=== PATIENT | female | born 1945 | race Caucasian/White ===

== ENCOUNTER → 2024-11-20 | Outpatient (CLI) | payer MEDICARE, SELFPAY ==
[2024-11-20 08:39] LABS: Basophils # (Auto) 0.1 Thou/mm3 (0.0-0.2); Basophils % (Auto) 2 % (0-2.5); Eosinophils # (Auto) 0.1 Thou/mm3 (0.0-0.5); Eosinophils % (Auto) 3 % (0-10); Hematocrit 40.9 % (36.0-46.0); Hemoglobin 13.7 g/dL (12.0-16.0); Immature Granulocytes % (Auto) 0 % (0-0); Immature Granulocytes Auto 0.01 Thou/mm3 (0.00-0.00); Lymphocytes # (Auto) 1.2 Thou/mm3 (1.0-4.8); Lymphocytes % (Auto) 32 % (10-50); Mean Corpuscular HGB Conc 33.5 g/dl (31.0-37.0); Mean Corpuscular Hemoglobin 29.5 pg (25.0-35.0); Mean Corpuscular Volume 88 fL (80-100); Monocytes # (Auto) 0.4 Thou/mm3 (0.0-0.8); Monocytes % (Auto) 12 % (0-12); Neutrophils # (Auto) 1.9 Thou/mm3 (1.8-7.7); Neutrophils % (Auto) 51 % (37-80); Nucleated Red Blood Cell % 0 /100 WBC (0); Platelet Count 338 Thou/mm3 (140-440); RDW Standard Deviation 40.4 fL (36.4-46.3); Red Blood Count 4.65 Miln/mm3 (4.00-5.20); White Blood Count 3.6 Thou/mm3 (3.6-11.0)
[2024-11-20 08:45] LABS: Glucose Estimated Average 108 mg/dL (80-131); Hemoglobin A1C 5.4 % Hgb (4.8-6.0)
[2024-11-20 08:49] LABS: T4 (Thyroxine) 10.4 mcg/dL (4.5-10.9)
[2024-11-20 09:01] LABS: Alanine Aminotransferase 11 U/L (10-49); Albumin, Serum 3.8 gm/dL (3.4-4.8); Albumin/Globulin Ratio 1.7 (1.2-2.2); Alkaline Phosphatase 115 U/L (46-116); Anion Gap 8 (7-16); Aspartate Amino Transferase 15 U/L (0-34); BUN/Creatinine Ratio 20 Ratio (12-20); Blood Urea Nitrogen 18 mg/dL (9-23); Calcium 10.1 mg/dL (8.3-10.6); Calcium (Corrected) 10.3 mg/dL (8.5-10.1); Carbon Dioxide 28.4 mMol/L (20.0-31.0); Cardiac Risk Estimate 2.5 RATIO (3.7-5.6); Chloride 98 mMol/L (98-107); Cholesterol 170 mg/dL (132-200); Creatinine (Component) 0.9 mg/dL (0.6-1.3); Globulin 2.3 gm/dL (2.3-3.5); Glucose 98 mg/dL (74-106); HDL Cholesterol 69 mg/dL (40-60); LDL Cholesterol,Calculated 83 mg/dL (0-130); Osmolality,Calculated 270 (275-295); Potassium 4.4 mMol/L (3.4-5.1); Sodium 134 mMol/L (136-145); Thyroid Stimulating Hormone 0.27 uIU/mL (0.55-4.78); Total Protein 6.1 gm/dL (5.7-8.2); Triglycerides 90 mg/dL (30-150); eGFR > 60 See Note
== END | disposition home or self-care (01) ==
PROVIDERS: PCP Family Medicine; Referring Provider Family Medicine; Visit Provider Family Medicine
DX: E03.9 Hypothyroidism, unspecified (principal); G47.30 Sleep apnea, unspecified; I10 Essential (primary) hypertension; J45.30 Mild persistent asthma, uncomplicated
CPT/HCPCS: 36415; 80053; 80061; 83036; 84436; 84443; 85025

== ENCOUNTER → 2025-07-25 | Outpatient (CLI) | payer MEDICARE, BC, SELFPAY ==
[2025-07-25 08:19] LABS: Basophils # (Auto) 0.1 Thou/mm3 (0.0-0.2); Basophils % (Auto) 1 % (0-2.5); Eosinophils # (Auto) 0.1 Thou/mm3 (0.0-0.5); Eosinophils % (Auto) 3 % (0-10); Hematocrit 41.2 % (36.0-46.0); Hemoglobin 13.5 g/dL (12.0-16.0); Immature Granulocytes Auto 0.01 Thou/mm3 (0.00-0.00); Lymphocytes # (Auto) 1.2 Thou/mm3 (1.0-4.8); Lymphocytes % (Auto) 32 % (10-50); Mean Corpuscular HGB Conc 32.8 g/dl (31.0-37.0); Mean Corpuscular Hemoglobin 29.7 pg (25.0-35.0); Mean Corpuscular Volume 91 fL (80-100); Monocytes # (Auto) 0.5 Thou/mm3 (0.0-0.8); Monocytes % (Auto) 13 % (0-12); Neutrophils # (Auto) 1.9 Thou/mm3 (1.8-7.7); Neutrophils % (Auto) 50 % (37-80); Nucleated Red Blood Cell # 0.00 Thou/mm3 (0.00-0.00); Nucleated Red Blood Cell % 0 /100 WBC (0); Platelet Count 321 Thou/mm3 (140-440); RDW Standard Deviation 48.9 fL (36.4-46.3); Red Blood Count 4.54 Miln/mm3 (4.00-5.20); White Blood Count 3.7 Thou/mm3 (3.6-11.0)
[2025-07-25 08:28] LABS: Glucose Estimated Average 120 mg/dL (80-131); Hemoglobin A1C 5.8 % Hgb (4.8-6.0)
[2025-07-25 08:44] LABS: Alanine Aminotransferase 14 U/L (10-49); Albumin, Serum 4.0 gm/dL (3.4-4.8); Albumin/Globulin Ratio 1.8 (1.2-2.2); Alkaline Phosphatase 98 U/L (46-116); Anion Gap 8 (7-16); Aspartate Amino Transferase 23 U/L (0-34); BUN/Creatinine Ratio 28 Ratio (12-20); Bilirubin,Total 0.9 mg/dL (0.3-1.2); Blood Urea Nitrogen 25 mg/dL (9-23); Calcium 10.0 mg/dL (8.3-10.6); Calcium (Corrected) 10.0 mg/dL (8.5-10.1); Carbon Dioxide 29.4 mMol/L (20.0-31.0); Cardiac Risk Estimate 2.4 RATIO (3.7-5.6); Chloride 100 mMol/L (98-107); Cholesterol 187 mg/dL (132-200); Creatinine (Component) 0.9 mg/dL (0.6-1.3); Globulin 2.2 gm/dL (2.3-3.5); Glucose 90 mg/dL (74-106); HDL Cholesterol 78 mg/dL (40-60); LDL Cholesterol,Calculated 95 mg/dL (0-130); Osmolality,Calculated 278 (275-295); Potassium 4.3 mMol/L (3.4-5.1); Sodium 137 mMol/L (136-145); T4 (Thyroxine) 7.4 mcg/dL (4.5-10.9); Thyroid Stimulating Hormone 2.98 uIU/mL (0.55-4.78); Total Protein 6.2 gm/dL (5.7-8.2); Triglycerides 71 mg/dL (30-150); eGFR > 60 See Note
== END | disposition home or self-care (01) ==
PROVIDERS: PCP Family Medicine; Referring Provider Family Medicine; Visit Provider Family Medicine
DX: B37.9 Candidiasis, unspecified (principal); I10 Essential (primary) hypertension; I48.91 Unspecified atrial fibrillation; M18.9 Osteoarthritis of first carpometacarpal joint, unspecified; M54.15 Radiculopathy, thoracolumbar region; K21.9 Gastro-esophageal reflux disease without esophagitis; R79.9 Abnormal finding of blood chemistry, unspecified
CPT/HCPCS: 36415; 80053; 80061; 83036; 84436; 84443; 85025

== ENCOUNTER 2025-08-31 10:50 | Emergency (ER) | payer MEDICARE, BC, SELFPAY ==
[2025-08-31 10:52] VITALS: BMI 26.9
[2025-08-31 11:17] VITALS: BP 197/80; PULSE 60; RESP 17; TEMP 36.6; O2SAT 98
--- NOTE | 2025-08-31 11:34 | XR_ITS ---
Examination: CT brain head without contrast. 2-D sagittal coronal reconstructions Date and time of exam: August 31, 2025, 1203 hours INDICATIONS: Ground-level fall today with injury of the head, head pain CTDI: vol (mGy): 48.9 DLP: (mGycm): 1052 Technique: Multiple CT axial sections of the brain have been obtained, 5 mm slice thickness. Contrast has not been administered. 2-D sagittal, coronal reconstructions have been obtained Low dose protocols were performed. One or more of the following dose reduction techniques were used; automated exposure control, adjustment of the mA and/or KV according to patient size, use of iterative reconstruction technique. Findings: No significant ventricular enlargement. Intra-axial or extra-axial hemorrhage density is not seen. No mass effect or midline shift Basal cisterns are not remarkable. Fourth ventricle is midline. Cranial vault intact. Soft tissue hematoma posterior left parietal scalp Focal sclerosis right mandible Impression: Negative for acute hemorrhage, mass effect or midline shift Consider nuclear medicine elective bone scan follow-up to exclude osteoblastic metastatic disease
--- NOTE | 2025-08-31 11:34 | EKG_ITS ---
[facility] Test Date: 2025-08-31 Pat Name: DORIS BARAHONA Department: Room: - Gender: Female Chronic Manager: : 1945 Requested By: Rosalinda Campbell Order Number: [id number] Reading MD: Rosalinda Campbell Measurements Intervals [place] Rate: 60 P: 98 TN: 276 QRS: 2 QRSD: 108 T: -62 QT: 429 QTc: 429 Interpretive Statements ELECTRONIC ATRIAL PACEMAKER LEFT VENTRICULAR HYPERTROPHY AND ST-T CHANGE [VOLTAGE CRITERIA PLUS ST/T ABNORMALITY] Compared to ECG 05/13/2022 09:07:53 Left ventricular hypertrophy now present ST (T wave) deviation now present Sinus bradycardia no longer present /store/S0/[id number]/ecg/[id number].pdf
--- NOTE | 2025-08-31 11:34 | XR_ITS ---
Examination: CT cervical spine without contrast 2-D sagittal reconstructions 2-D coronal reconstructions 3-D reconstructions. Exam date and time: August 31, 2025, 1203 hours INDICATIONS: Ground-level fall today with injury to the neck, neck pain CTDI:vol (mGy) 15.2 DLP: (mGycm) 332 Technique: Multiple 2 mm axial sections of the cervical spine have been obtained. The coronal and sagittal reconstructions have been obtained. 3-D reconstructions have been obtained. Low dose protocols were performed. One or more of the following dose reduction techniques were used; automated exposure control, adjustment of the mA and/or KV according to patient size, use of iterative reconstruction technique. Findings: Axial sections demonstrate intact base of the skull. C1 exhibit satisfactory relationship to the odontoid. No acute cervical vertebral body fracture seen. Alignment posterior spinous processes satisfactory. Cervical fusion C4-C6 with anatomic alignment Advanced degenerative disc disease C6-C7 Stable focal sclerosis C2 right lamina Impression: No acute cervical fracture.
--- NOTE | 2025-08-31 11:36 | PD.EDRME ---
Rapid Medical Screening Exam [facility] Arrival date/time: 08/31/25 10:50 This is a 80-year-old female that is brought into the emergency room with complaints of neck pain and head pain status post fall. Patient's family member came over this morning and saw patient with a melted ice bag on her head and she was sleeping on the recliner. Patient already had bandages to her bilateral hands where she has skin tears. Patient has a hematoma to the back of her head. Patient does not remember what happened patient does not remember waking up on the floor patient does not remember putting bandages on her hands. Patient complains of dizziness and nausea. Patient denies chest pain shortness of breath. Patient has a history of pacemaker placement. Patient also has a history of hypothyroid, hypertension, hyperlipidemia and A-fib I have greeted and performed a focused initial assessment of this patient. Initial appropriate labs ordered at this time. A comprehensive ED assessment and evaluation of the patient and analysis of all test and completion of medical decision making process will be conducted by additional ED provider. Chief Complaint: Fall Time Seen by Provider: 08/31/25 10:52 Vital signs: Vital Signs Temperature 97.9 F 08/31/25 11:17 Pulse Rate 60 08/31/25 11:17 Respiratory Rate 17 08/31/25 11:17 Blood Pressure 197/80 H 08/31/25 11:17 Pulse Oximetry (%) 98 08/31/25 11:17 Oxygen Delivery Method Room Air 08/31/25 11:17 Exam: Alert and oriented, hematoma to the back of head, no focal deficits Clinical Impression: Head injury dizziness
[2025-08-31 12:02] LABS: Basophils # (Auto) 0.0 Thou/mm3 (0.0-0.2); Basophils % (Auto) 1 % (0-2.5); Eosinophils # (Auto) 0.0 Thou/mm3 (0.0-0.5); Eosinophils % (Auto) 0 % (0-10); Hematocrit 41.0 % (36.0-46.0); Hemoglobin 13.5 g/dL (12.0-16.0); Immature Granulocytes Auto 0.02 Thou/mm3 (0.00-0.00); Lymphocytes # (Auto) 0.6 Thou/mm3 (1.0-4.8); Lymphocytes % (Auto) 7 % (10-50); Mean Corpuscular HGB Conc 32.9 g/dl (31.0-37.0); Mean Corpuscular Hemoglobin 30.1 pg (25.0-35.0); Mean Corpuscular Volume 91 fL (80-100); Monocytes # (Auto) 0.5 Thou/mm3 (0.0-0.8); Monocytes % (Auto) 6 % (0-12); Neutrophils # (Auto) 7.6 Thou/mm3 (1.8-7.7); Neutrophils % (Auto) 86 % (37-80); Nucleated Red Blood Cell # 0.00 Thou/mm3 (0.00-0.00); Nucleated Red Blood Cell % 0 /100 WBC (0); Platelet Count 271 Thou/mm3 (140-440); RDW Standard Deviation 44.9 fL (36.4-46.3); Red Blood Count 4.49 Miln/mm3 (4.00-5.20); White Blood Count 8.8 Thou/mm3 (3.6-11.0)
[2025-08-31 12:26] LABS: B-Type Natriuretic Peptide 62 pg/mL (0-100)
[2025-08-31 12:27] LABS: Alanine Aminotransferase 11 U/L (10-49); Albumin, Serum 4.2 gm/dL (3.4-4.8); Albumin/Globulin Ratio 1.6 (1.2-2.2); Alkaline Phosphatase 102 U/L (46-116); Anion Gap 9 (7-16); Aspartate Amino Transferase 21 U/L (0-34); BUN/Creatinine Ratio 24 Ratio (12-20); Bilirubin,Total 1.0 mg/dL (0.3-1.2); Blood Urea Nitrogen 22 mg/dL (9-23); Calcium 9.9 mg/dL (8.3-10.6); Calcium (Corrected) 9.9 mg/dL (8.5-10.1); Carbon Dioxide 26.9 mMol/L (20.0-31.0); Chloride 96 mMol/L (98-107); Creatinine (Component) 0.9 mg/dL (0.6-1.3); Estimated Creatinine Clearance 49.1 mL/min (>60); Globulin 2.7 gm/dL (2.3-3.5); Glucose 144 mg/dL (74-106); Osmolality,Calculated 270 (275-295); Potassium 4.6 mMol/L (3.4-5.1); Sodium 132 mMol/L (136-145); Total Protein 6.9 gm/dL (5.7-8.2); Troponin I < 0.020 ng/mL (0.0-0.045); eGFR > 60 See Note
--- NOTE | 2025-08-31 14:35 | PD.EDFALL ---
ED Fall Injury RME/HPI General Chief Complaint: Fall Stated Complaint: GLF, NAUSEOUS; +LOC Time Seen by Provider: 08/31/25 10:52 Arrival date/time: 08/31/25 10:50 80-year-old female patient came in for evaluation regarding nausea and vomiting. Onset of symptoms earlier this morning as patient sustained a ground-level fall sustaining multiple left skin tears to the bilateral upper extremity and scalp contusion. According to her she does not remember the incident. Denies any other injury. No medication was taken prior to ER visit. Patient is ambulatory. RME / HPI RME / HPI Narrative: 08/31/25 10:50 This is a 80-year-old female that is brought into the emergency room with complaints of neck pain and head pain status post fall. Patient's family member came over this morning and saw patient with a melted ice bag on her head and she was sleeping on the recliner. Patient already had bandages to her bilateral hands where she has skin tears. Patient has a hematoma to the back of her head. Patient does not remember what happened patient does not remember waking up on the floor patient does not remember putting bandages on her hands. Patient complains of dizziness and nausea. Patient denies chest pain shortness of breath. Patient has a history of pacemaker placement. Patient also has a history of hypothyroid, hypertension, hyperlipidemia and A-fib I have greeted and performed a focused initial assessment of this patient. Initial appropriate labs ordered at this time. A comprehensive ED assessment and evaluation of the patient and analysis of all test and completion of medical decision making process will be conducted by additional ED provider. Exam: Alert and oriented, hematoma to the back of head, no focal deficits Impression: Head injury dizziness Related Data Home Medications ?Medication ?Instructions ?Recorded ?Confirmed Levothyroxine * (SYNTHROID *) 150 mcg PO QDAY #0 tabs 04/16/14 12/23/22 famotidine 20 mg tablet (Pepcid) 20 mg PO QDAY #0 tabs 04/16/14 12/23/22 fexofenadine 180 mg tablet 180 mg PO QDAY #0 tabs 04/16/14 12/23/22 (Lisha Allergy) irbesartan 300 mg tablet (Avapro) 300 mg PO QDAY #0 tabs 04/16/14 12/23/22 montelukast 10 mg tablet 10 mg PO HS #0 tabs 04/16/14 12/23/22 (Singulair) simvastatin 40 mg tablet (Zocor) 40 mg PO QDAY #0 tabs 04/16/14 12/23/22 amlodipine 10 mg tablet (Norvasc) 10 mg PO QDAY #0 tabs 08/22/17 12/23/22 ipratropium 20 mcg-albuterol 100 20 puff inhalation PRN PRN Wheezing 10/23/21 12/23/22 mcg/actuation mist for inhalation (Combivent Respimat) omeprazole 20 mg capsule,delayed 20 mg PO DAILY 10/23/21 12/23/22 release spironolactone 25 25 tab PO DAILY 10/23/21 12/23/22 mg-hydrochlorothiazide 25 mg tablet estradiol 0.01% (0.1 mg/gram) 2 g vaginal DIRECTED 12/09/22 12/23/22 vaginal cream (Estrace) prednisone 20 mg tablet 20 mg PO QDAY 12/09/22 12/23/22 gabapentin 100 mg capsule 200 mg PO BID 12/23/22 12/23/22 Previous Rx's ?Medication ?Instructions ?Recorded acetaminophen 300 mg-codeine 15 mg 1 tab PO Q6H PRN pain #20 tabs 12/13/22 tablet Allergies Allergy/AdvReac Type Severity Reaction Status Date / Time epinephrine Allergy Severe PASSED OUT Verified 08/31/25 10:56 ibuprofen Allergy Severe BLEEDING Verified 08/31/25 10:56 morphine AdvReac Severe SEVERE Verified 08/31/25 10:56 HEADACHE SOMMER Inhibitors AdvReac Mild COUGH Verified 08/31/25 10:56 fentanyl AdvReac Headache Verified 08/31/25 10:56 Review of Systems Review of Systems Narrative Review of Systems: Review of system reviewed and within normal limits except mentioned in HPI ED Exam Narrative Physical exam: VITAL SIGNS: Reviewed. GENERAL APPEARANCE: Alert and interactive, follows commands, no acute distress, HEAD AND FACE: Scalp contusion noted on the occipital area no crepitus no skin breakdown ENT: PERRL, pink conjunctivitis, eyelid no trauma, Mucous membrane moist. NECK: Supple, nontender, no nuchal rigidity. CHEST: No tenderness, no crepitus, no paradoxical movement, no retractions. LUNGS: Clear, well ventilated, symmetric, no rales, no wheezing, no ronchi, no stridor, good breath sounds bilaterally. HEART: Regular rate, regular rhythm, no murmur, no gallops. ABDOMEN: Soft, positive bowel sounds, nondistended, no guarding, nontender, no rebound, no masses, RECTAL: Deferred. GENITAL: Deferred. NEUROLOGICAL: Gross motor function intact sensory function intact, Appropriate for age. MUSCULOSKELETAL: low back nontender, full range of motion. EXTREMITIES: Nontender, full range of motion. SKIN: Color pink, dry, no rash, multiple skin tears to the bilateral upper extremity and hand LYMPHATICS: Deferred. Course Quality Measures none Orders Category Date Time Status Apply soft cervical collar ONCE Care 08/31/25 11:34 Active EKG (ED ONLY) *Do not use* NOW Care 08/31/25 11:[address] cervical spine wo con Stat Exams 08/31/25 11:[address] head/brain wo con Stat Exams 08/31/25 11:34 Completed EKG (ED Only) Stat Exams 08/31/25 11:34 Draft BNP [B-Type Natriuretic Peptide] Stat Lab 08/31/25 11:52 Completed CBC Stat Lab 08/31/25 11:52 Completed Comprehensive Metabolic Panel Stat Lab 08/31/25 11:52 Completed Troponin I Stat Lab 08/31/25 11:52 Completed Vital Signs Vital signs: Vital Signs Temperature 97.9 F 08/31/25 11:17 Pulse Rate 60 08/31/25 11:17 Respiratory Rate 17 08/31/25 11:17 Blood Pressure 197/80 H 08/31/25 11:17 Pulse Oximetry (%) 98 08/31/25 11:17 Oxygen Delivery Method Room Air 08/31/25 11:17 Fall MDM Narrative MDM Narrative:: 80-year-old female patient came in for evaluation regarding nausea and vomiting. Onset of symptoms earlier this morning as patient sustained a ground-level fall sustaining multiple left skin tears to the bilateral upper extremity and scalp contusion. According to her she does not remember the incident. Denies any other injury. No medication was taken prior to ER visit. Patient is ambulatory. CT scan of the head came back unremarkable except for recommendation to do elective nuclear imaging of the skull to rule out osteoblastic lesions. Patient was given a copy of her CT scan results. CT scan of the neck came back unremarkable. Skin tear were cleaned with NS, and well-approximated with sterile strip. Sterile dressing applied patient was advised not to get it wet for 7 days. Patient is stable for charged home. Patient data External records reviewed:: None Clinical information provided by:: patient and family Social determinants that could affect healthcare access:: none Patient has the following chronic illnesses:: Hypertension How is presenting disease/condition affected by chronic disease/condition?: uneffected by Evaluation data The following diagnostics were reviewed and interpreted by me:: lab results and radiology exam(s) Lab and/or radiology exams considered but not ordered:: None Interpretation Summary: See above Medications / Prescriptions Medications or Prescriptions considered but not ordered:: None Medication administrations:: None Consultations Consultation(s) initiated? (list below): No Diagnosis Fall Differential Diagnosis: other (Fall, scalp contusion, skin tear) Most likely diagnosis given after review of the tests above:: fall contusion, fall skin tear Admission Indicated Admission indicated?: not indicated Admission Request Was there a request for admission?: No Disposition Plan Disposition Plan: Discharge Discharge Attestation Discharge Attestation: The patient and all family members were given an opportunity to ask questions and understood the discharge instructions. Discharge instructions specifically effects, indications for sooner follow up or return to the emergency department, and the expected course of current diagnosis. Patient condition: Stable Discharge Plan Plan Patient Disposition: HOME (Self Care) Discharge Disposition comment: Stable Prescriptions/Referrals Prescriptions/Med Rec: No Action gabapentin 100 mg capsule 200 mg PO BID estradiol [Estrace] 0.01 % (0.1 mg/gram) cream 2 g vaginal DIRECTED Patient Comments: twice a week prednisone 20 mg tablet 20 mg PO QDAY fexofenadine [Lisha Allergy] 180 MG tablet 180 mg PO QDAY Qty: 0 simvastatin [Zocor] 40 MG tablet 40 mg PO QDAY Qty: 0 famotidine [Pepcid] 20 MG tablet 20 mg PO QDAY Qty: 0 Patient Comments: TO SUPPRESS GASTRIC ACID SECRETION montelukast [Singulair] 10 MG tablet 10 mg PO HS Qty: 0 irbesartan [Avapro] 300 MG tablet 300 mg PO QDAY Qty: 0 Levothyroxine * (SYNTHROID *) 150 MCG tablet 150 mcg PO QDAY Qty: 0 amlodipine [Norvasc] 10 MG tablet 10 mg PO QDAY Qty: 0 spironolacton-hydrochlorothiaz 25-25 mg Tablet 25 tab PO DAILY omeprazole 20 mg capsule,delayed release(DR/EC) 20 mg PO DAILY Patient Comments: TAKE 1 CAPSULE BY MOUTH EVERY DAY Combivent Respimat 20-100 mcg/actuation mist 20 puff INHALATION PRN PRN (Reason: Wheezing) Patient Comments: INHALE 2 PUFFS BY MOUTH TWICE A DAY NEEDED FOR 30 DAYS acetaminophen-codeine 300-15 mg tablet 1 tab PO Q6H PRN (Reason: pain) Qty: 20 0RF Referrals: Joanna Taylor MD [Primary Care Provider, Family Practice] - In 1 week Problem List Clinical Impression: Contusion of scalp, Skin tear, Fall Patient/Caregiver Discharge Instructions Discharge Activity: activity as tolerated Education Materials: Bruises (Contusions) Additional Instructions: Thank you for the opportunity for serving you today. You are stable for discharged . You are advised to: Follow-up with your PCP in 1 to 2 days Return to ED for worsening of symptoms Increase oral fluids Do not remove your Steri-Strips for minimum 5 to 7 days do not get it wet Apply ice for 15 minutes 3 times a day to your scalp as needed Print Language: Syriac Stand Alone Forms: [employer] Award Info., Patient Portal Info Letter
== END 2025-08-31 14:46 | disposition home or self-care (01) ==
PROVIDERS: Nurse Practitioner Family; Emergency Provider Emergency Medicine; PCP Family Medicine
DX: S00.03XA Contusion of scalp, initial encounter (principal); S61.412A Laceration without foreign body of left hand, initial encounter; S61.411A Laceration without foreign body of right hand, initial encounter; S41.112A Laceration without foreign body of left upper arm, initial encounter; S41.111A Laceration without foreign body of right upper arm, initial encounter; S19.9XXA Unspecified injury of neck, initial encounter; R94.31 Abnormal electrocardiogram [ECG] [EKG]; E78.5 Hyperlipidemia, unspecified; I10 Essential (primary) hypertension; I48.91 Unspecified atrial fibrillation; W18.30XA Fall on same level, unspecified, initial encounter; Z95.0 Presence of cardiac pacemaker
CPT/HCPCS: 36415; 70450; 72125; 80053; 83880; 84484; 85025; 93005; 99283